=== PATIENT | female | born 1995 | race Hispanic/Latino ===

== ENCOUNTER 2017-03-30 18:59 | Observation (INO) | payer BC ==
[2017-03-30] MEDS ORDERED: Sodium Chloride 0.9% 1,000 ML IV STA (19:31)
--- NOTE | 2017-03-30 19:35 | ED PDOC ---
Arrival/HPI - General Chief Complaint: Abdominal Pain Time Seen by Provider: 03/30/17 19:22 Historian: Patient - History of Present Illness Narrative History of Present Illness (Text): 03/30/17 19:33 A 22 year old female, whose past medical history includes asthma, presents to the emergency department complaining of stomach discomfort with some nausea beginning early this afternoon. Patient denies any vomiting or diarrhea. States she had eaten out [place] food night prior. Patient denies any fever, chills, chest pain, shortness of breath or any other complaints at this time. Time/Duration: 4-6 hours Symptom Onset: Sudden Symptom Course: Unchanged Activities at Onset: Rest Associated Symptoms (Text): nausea Past Medical History - Provider Review Nursing Documentation Reviewed: Yes - Travel History Have you recently traveled outside [place] w/in the past 3 mons?: No - Infectious Disease Hx of Infectious Diseases: None - Tetanus Immunization Tetanus Immunization: Up to Date - Pulmonary Hx Asthma: Yes - Musculoskeletal/Rheumatological Hx Falls: No - Psychiatric Hx Depression: No Hx Emotional Abuse: No Hx Physical Abuse: No Hx Substance Use: No - Past Surgical History Past Surgical History: No Previous - Surgical History Hx Section: Yes (2016) Hx Tonsillectomy: Yes Other/Comment: Adenoidectomy - Anesthesia Hx Anesthesia: Yes Hx Anesthesia Reactions: No Hx Malignant Hyperthermia: No - Suicidal Assessment Feels Threatened In Home Enviroment: No Family/Social History - Physician Review Nursing Documentation Reviewed: Yes Family/Social History: No Known Family HX Smoking Status: Never Smoked Hx Alcohol Use: No Hx Substance Use: No Allergies/Home Meds Allergies/Adverse Reactions: Allergies amoxicillin [From Augmentin] Adverse Reaction (Verified 03/30/17 19:15) RASH cefdinir [From Omnicef] Adverse Reaction (Verified 03/30/17 19:15) RASH clavulanic acid [From Augmentin] Adverse Reaction (Verified 03/30/17 19:15) RASH clindamycin Adverse Reaction (Verified 03/30/17 19:15) RASH Sulfa (Sulfonamide Antibiotics) Adverse Reaction (Verified 03/30/17 19:15) RASH sulfamethoxazole [From Bactrim] Adverse Reaction (Verified 03/30/17 19:15) RASH trimethoprim [From Bactrim] Adverse Reaction (Verified 03/30/17 19:15) RASH pcn Adverse Reaction (Uncoded 03/30/17 19:15) ANGIOEDEMA Home Medications: Home Meds Medication Instructions Recorded Confirmed Albuterol HFA [Ventolin HFA 90 1 puff IH Q4 PRN 03/30/17 03/30/17 mcg/actuation (8 g)] Review of Systems - Physician Review All systems were reviewed & negative as marked: Yes - Review of Systems Constitutional: Normal Eyes: Normal ENT: Normal Respiratory: Normal Cardiovascular: Normal Gastrointestinal: Abdominal Pain, Nausea Genitourinary Female: Normal Musculoskeletal: Normal Skin: Normal Neurological: Normal Endocrine: Normal Hemo/Lymphatic: Normal Psychiatric: Normal Physical Exam Vital Signs Reviewed: Yes Vital Signs Temp Pulse Resp BP Pulse Ox 03/30/17 23:31 98.3 F 84 18 135/87 97 03/30/17 19:09 98.3 F 97 H 20 126/82 99 Temperature: Afebrile Blood Pressure: Normal Pulse: Regular Respiratory Rate: Normal Appearance: Positive for: Well-Appearing, Non-Toxic, Comfortable Pain Distress: None Mental Status: Positive for: Alert and Oriented X 3 - Systems Exam Head: Present: Atraumatic, Normocephalic Pupils: Present: PERRL Extroacular Muscles: Present: EOMI Conjunctiva: Present: Normal Ears: Present: NORMAL TM Mouth: Present: Moist Mucous Membranes Pharnyx: Present: Normal Neck: Present: Normal Range of Motion Respiratory/Chest: Present: Clear to Auscultation, Good Air Exchange. No: Respiratory Distress, Accessory Muscle Use Cardiovascular: Present: Regular Rate and Rhythm, Normal S1, S2. No: Murmurs Abdomen: Present: Normal Bowel Sounds. No: Tenderness, Distention, Peritoneal Signs Back: Present: Normal Inspection Upper Extremity: Present: Normal Inspection. No: Cyanosis, Edema Lower Extremity: Present: Normal Inspection. No: Edema Neurological: Present: GCS=15, CN II-XII Intact, Speech Normal, Motor Func Grossly Intact, Normal Sensory Function Skin: Present: Warm, Dry, Normal Color. No: Rashes Psychiatric: Present: Alert, Oriented x 3, Normal Insight, Normal Concentration Medical Decision Making ED Course and Treatment: 03/30/17 19:59 Impression: A 22 year old female complaining of stomach discomfort with nausea. Plan: -- Urinalysis -- labs -- Pepcid, IV fluids, Zofran -- Reassess and disposition Prior Visits: Notes and results from previous visits were reviewed. Patient last reported to emergency department on 11/08/15 for evaluation of rash and pruritus. Patient was advised to take medication and follow up with doctor/final inspector paper. Patient was discharged. - Lab Interpretations I have reviewed the lab results: Yes - RAD Interpretation Narrative RAD Interpretations (Text): US Gallbladder and Pancreas shows: Liver: The liver is increased in echogenicity and size measuring 21 cm in longitudinal dimension. No intrahepatic bile duct dilation. Gallbladder: No acute findings. No gallstones. Common bile duct: No stones. No dilation, measuring 4.2 mm. Pancreas: Visualization of the pancreas is limited by overlying bowel gas. Right kidney: Unremarkable in echogenicity and size measuring 12.2 x 5.3 x 5.2 cm. No obstructing stones. No solid mass. No hydronephrosis. The visualized abdominal aorta is non-aneurysmal, the IVC is patent. IMPRESSION: Fatty infiltration of an enlarged liver, as detailed above. Limited evaluation of the pancreas, secondary to overlying bowel gas CT Abdomen and Pelvis shows: Lower thorax: The bilateral lung bases are clear. ABDOMEN: Liver: The liver is enlarged, and demonstrates fatty infiltration. Gallbladder and bile ducts: No acute finding. No calcified stones. No intra- extrahepatic biliary ductal dilation. Pancreas: Limited evaluation secondary to the lack of intravenous contrast. Spleen: No acute findings. Adrenals: No acute findings. Kidneys and ureters: No obstructing stones. No hydronephrosis. PELVIS: Bladder: No acute findings. Reproductive: A 34 mm focus of fluid attenuation is identified within the left ovary, with a small amount of free fluid in the posterior cul-de-sac. Appendix: Air-filled appendix is of normal-caliber (series 2, image 125; series 601, image 54). ABDOMEN and PELVIS: Stomach and bowel: Mural thickening is identified within multiple loops of small bowel within the left mid to upper abdomen, without surrounding fluid or inflammatory change to confirm an acute enteritis. Peritoneum: As above. Lymph nodes: Prominent lymph nodes are identified within the root of the mesentery. Vasculature: No aortic aneurysm. Bones: No acute fracture. IMPRESSION: No obstructive uropathy. Prominent lymph nodes within the root of the mesentery. Fatty infiltration of an enlarged liver. Left ovarian (likely) cyst with free fluid in the posterior cul-de-sac. Mural thickening within multiple loops of small bowel within the left mid to upper quadrant without surrounding inflammation or fluid to confirm an enteritis. Aircraft Maintenance Technician: Radiologist - Medication Orders Current Medication Orders: Sodium Chloride (Sodium Chloride 0.9%) 1,000 mls @ 100 mls/hr IV .Q10H STA Stop: 03/31/17 12:20 Ondansetron HCl (Zofran Inj) 4 mg IVP Q6H PRN PRN Reason: Nausea/Vomiting Stop: 03/31/17 11:00 Discontinued Medications Famotidine (Pepcid) 20 mg IVP STAT STA Stop: 03/30/17 19:32 Last Admin: 03/30/17 19:58 Dose: 20 mg Sodium Chloride (Sodium Chloride 0.9%) 1,000 mls @ 999 mls/hr IV .Q1H1M STA Stop: 03/30/17 20:31 Last Admin: 03/30/17 19:58 Dose: 999 mls/hr Ketorolac Tromethamine (Toradol) 30 mg IVP ONCE ONE Stop: 03/30/17 20:10 Last Admin: 03/30/17 20:31 Dose: 30 mg Morphine Sulfate (Morphine) 2 mg IVP STAT STA Stop: 03/30/17 21:57 Last Admin: 03/30/17 22:24 Dose: 2 mg Morphine Sulfate (Morphine) 2 mg IVP STAT STA Stop: 03/31/17 00:20 Last Admin: 03/31/17 00:31 Dose: 2 mg Ondansetron HCl (Zofran Inj) 4 mg IVP ONCE ONE Stop: 03/30/17 19:32 Last Admin: 03/30/17 19:58 Dose: 4 mg ED OBSERVATION Date of observation admission: 03/30/17 Time of observation admission: 19:35 - Observation admission statement Patient is being placed in observation because:: evaluation of abdominal pain - Goals of Observation Goals of observation are:: determine and treat symptoms - Progress Note Progress Note: 03/30/17 19:35 Pt presented with stomach discomfort with nausea. Will observe pending labs, resolution of symptoms. 03/30/17 21:30 Pt in no acute distress. Still complaining of pain. 03/30/17 23:30 Reviewed sono, US Gallbladder and Pancreas shows: Fatty infiltration of an enlarged liver, as detailed above. Limited evaluation of the pancreas, secondary to overlying bowel gas. 03/31/17 01:09 Pt sill complaining of stomach discomfort. Will order CT Abdomen and Pelvis w/o contrast. 03/31/17 01:48 CT Abdomen and Pelvis shows: No obstructive uropathy. Prominent lymph nodes within the root of the mesentery. Fatty infiltration of an enlarged liver. Left ovarian (likely) cyst with free fluid in the posterior cul-de-sac. Mural thickening within multiple loops of small bowel within the left mid to upper quadrant without surrounding inflammation or fluid to confirm an enteritis. 03/31/17 02:[address] Marco Morales, who is aware and agrees with plan. Accepts pt in to her service. Pt will go to [facility] observation of intractable abdominal pain. Requests Dr. Singer on consult. - Scribe Statement The provider has reviewed the documentation as recorded by the Scribe Tien Pelletier All medical record entries made by the Scribe were at my direction and personally dictated by me. I have reviewed the chart and agree that the record accurately reflects my personal performance of the history, physical exam, medical decision making, and the department course for this patient. I have also personally directed, reviewed, and agree with the discharge instructions and disposition. Disposition/Present on Arrival - Present on Arrival Any Indicators Present on Arrival: No History of DVT/PE: No History of Uncontrolled Diabetes: No Urinary Catheter: No History of Decub. Ulcer: No History Surgical Site Infection Following: None - Disposition Have Diagnosis and Disposition been Completed?: Yes Diagnosis: Intractable abdominal pain Disposition: HOSPITALIZED Disposition Time: 02:23 Patient Plan: Observation Patient Problems: Current Active Problems Problem Status Onset Intractable abdominal pain Acute Condition: STABLE
[2017-03-30 19:58] LABS: URINE BILIRUBIN NEGATIVE (NEGATIVE); URINE BLOOD NEGATIVE (NEGATIVE); URINE GLUCOSE (UA) NEGATIVE (NEGATIVE); URINE KETONE NEGATIVE (NEGATIVE); URINE LEUKOCYTE ESTERASE NEGATIVE Leu/uL (NEGATIVE); URINE PROTEIN NEGATIVE mg/dL (<30 mg/dL); URINE UROBILINOGEN 0.2 E.U./dL (<1 E.U./dL)
[2017-03-30 20:02] LABS: URINE APPEARANCE CLEAR (CLEAR); URINE COLOR YELLOW (YELLOW)
[2017-03-30 20:11] LABS: ALB/GLOB RATIO 1.2 (1.1-1.8); ALKALINE PHOSPHATASE 63 U/L (38-133); ALT/SGPT 55 U/L (7-56); AST/SGOT 26 U/L (15-39); BILIRUBIN,TOTAL 0.5 mg/dL (0.2-1.3); BLOOD UREA NITROGEN 12 mg/dL (7-21); CALCIUM 9.2 mg/dL (8.4-10.5); CARBON DIOXIDE 28 mmol/L (21-33); CHLORIDE 101 mmol/L (98-107); GFR AFRICAN-AMERICAN > 60; GLUCOSE,RANDOM 94 mg/dL (70-110); LIPASE 58 U/L (23-300); SODIUM 139 mmol/L (132-148)
[2017-03-30 20:15] LABS: HEMATOCRIT 39.5 % (36.0-48.0); MEAN CELL VOLUME 80.9 fL (80.0-105.0); MEAN CORPUSCULAR HEMOGLOBIN 27.3 pg (25.0-35.0); MEAN CORPUSCULAR HGB CONC 33.7 g/dl (31.0-37.0); MEAN PLATELET VOLUME 10.3 fl (7.0-11.0); RED CELL DISTRIBUTION WIDTH 13.8 % (11.5-14.5)
[2017-03-30] MEDS ORDERED: Morphine 2 mg/ml ISec IVP STA (21:56)
--- NOTE | 2017-03-30 23:40 | US ---
EXAM: US Abdomen Limited, Right Upper Quadrant CLINICAL HISTORY: 22 years old, female; Pain; Abdominal pain; Generalized TECHNIQUE: Real-time ultrasound of the right upper quadrant with image documentation. COMPARISON: No relevant prior studies available. FINDINGS: Liver: The liver is increased in echogenicity and size measuring 21 cm in longitudinal dimension. No intrahepatic bile duct dilation. Gallbladder: No acute findings. No gallstones. Common bile duct: No stones. No dilation, measuring 4.2 mm. Pancreas: Visualization of the pancreas is limited by overlying bowel gas. Right kidney: Unremarkable in echogenicity and size measuring 12.2 x 5.3 x 5.2 cm. No obstructing stones. No solid mass. No hydronephrosis. The visualized abdominal aorta is non-aneurysmal, the IVC is patent. IMPRESSION: Fatty infiltration of an enlarged liver, as detailed above. Limited evaluation of the pancreas, secondary to overlying bowel gas.
[2017-03-31] MEDS ORDERED: Morphine 2 mg/ml ISec IVP STA (00:19)
[2017-03-31] MEDS ORDERED: Sodium Chloride 0.9% 1,000 ML IV STA (02:21)
[2017-03-31 03:58] VITALS: RESP 18; BMI 39.1
[2017-03-31] MEDS ORDERED: HYDROmorphone 1 mg/ml ISec IVP STA (04:29)
--- NOTE | 2017-03-31 04:39 | CP.PCM.PN ---
Subjective - Date & Time of Evaluation Date of Evaluation: 03/31/17 Time of Evaluation: 04:34 - Subjective Subjective: Patient was seen at bedside in presence of nurse Lowry for abdominal pain. States that abdominal pain was intermittent before, now it's continuous, in periumbilical area mostly.Has some nausea. No vomiting, diarrhoea.Has no other complaints. States that she received morphine in the ER , after which she had some relief in pain for about half hour. This 22 year old white woman is admitted for intractable abdominal pain. She has history of asthma, obesity, adenoidectomy,tonsillectomy , . Objective - Vital Signs/Intake and Output Vital Signs (last 24 hours): Temp Pulse Resp BP Pulse Ox 99 F 102 H 18 122/71 100 03/31/17 03:48 03/31/17 03:48 03/31/17 03:48 03/31/17 03:48 03/31/17 02:46 - Medications Medications: Current Medications Sodium Chloride (Sodium Chloride 0.9%) 1,000 mls @ 100 mls/hr IV .Q10H STA Stop: 03/31/17 12:20 Last Admin: 03/31/17 02:40 Dose: 100 mls/hr Ondansetron HCl (Zofran Inj) 4 mg IVP Q6H PRN PRN Reason: Nausea/Vomiting Stop: 03/31/17 11:00 Last Admin: 03/31/17 04:24 Dose: 4 mg - Labs Labs: 03/30/17 19:50 03/30/17 19:50 - Constitutional Appears: Well, No Acute Distress - Head Exam Head Exam: ATRAUMATIC, NORMAL INSPECTION, NORMOCEPHALIC Additional comments: Obese. - Eye Exam Eye Exam: Normal appearance - ENT Exam ENT Exam: Normal External Ear Exam - Neck Exam Neck Exam: Normal Inspection - Respiratory Exam Respiratory Exam: NORMAL BREATHING PATTERN - Cardiovascular Exam Cardiovascular Exam: absent: JVD - GI/Abdominal Exam GI & Abdominal Exam: Tenderness (Mild periumbilical .). absent: Distended - Rectal Exam Rectal Exam: Deferred - Extremities Exam Extremities Exam: Normal Inspection - Back Exam Back Exam: NORMAL INSPECTION - Neurological Exam Neurological Exam: Alert, Oriented x3 - Psychiatric Exam Psychiatric exam: Normal Affect, Normal Mood - Skin Skin Exam: Normal Color Assessment and Plan - Assessment and Plan (Free Text) Assessment: A/P:Intractable abdominal pain. Asthma. Obesity. Dilaudid 1 mg IV x 1 . Continue present management.
[2017-03-31 07:44] VITALS: BP 102/57; PULSE 100; TEMP 99; O2SAT 98
--- NOTE | 2017-03-31 09:08 | CT ---
PROCEDURE: CT Abdomen and Pelvis without intravenous contrast HISTORY: pain COMPARISON: None. TECHNIQUE: Axial and reformatted coronal and sagittal CT images of the abdomen and pelvis were obtained without IV or oral contrast administration.. Contrast Dose: 0 Radiation dose: Total exam DLP = 1169.02 mGy-cm. This CT exam was performed using one or more of the following dose reduction techniques: Automated exposure control, adjustment of the mA and/or kV according to patient size, and/or use of iterative reconstruction technique. FINDINGS: LOWER THORAX: Unremarkable. LIVER: Hepatomegaly with findings suggestive of moderate hepatic steatosis are noted. GALLBLADDER AND BILE DUCTS: No evidence of colitis. PANCREAS: Unremarkable. No gross lesion or ductal dilatation. SPLEEN: Unremarkable. ADRENALS: Unremarkable. No mass. KIDNEYS AND URETERS: Unremarkable. No hydronephrosis. No solid mass. VASCULATURE: Unremarkable. No aortic aneurysm. BOWEL: Mural thickening noted in multiple small bowel loops. Correlate clinically for enteritis. Dense of bowel obstruction. APPENDIX: No evidence of appendicitis. PERITONEUM: Unremarkable. No free fluid. No free air. LYMPH NODES: Mildly enlarged mesenteric lymph nodes seen at the mid and upper abdomen of uncertain etiology. BLADDER: Unremarkable. REPRODUCTIVE: There is 3.1 centimeter cyst at the left adnexa. There is a small amount of fluid in the pelvis. The uterus is slightly prominent heterogeneous. BONES: No acute fracture. OTHER FINDINGS: None. IMPRESSION: No evidence of nephrolithiasis or hydronephrosis. Scattered mildly enlarged mesenteric lymph nodes suspicious for mesenteric adenitis. Mild diffuse small bowel wall thickening. Correlate clinically for enteritis. 3.1 centimeters cyst at the left adnexa. Small amount of fluid seen in the pelvis. If clinically warranted further assessment by ultrasound may be obtained. Preliminary report was submitted by virtual Radiology.
--- NOTE | 2017-03-31 10:40 | HP ---
HISTORY OF PRESENT ILLNESS: The patient is a 22-year-old woman with a past medical history of mild intermittent asthma who presented to the [facility] Emergency Department with a 1-day history of gradual onset epigastric abdominal discomfort associated with nausea and decreased p.o. intake. The patient states that she was in her usual state of health until the day prior to presentation to the Emergency Department when she had eaten [place] food for dinner. Several hours later and leading into the following day , the patient reported development of epigastric abdominal discomfort associated with bloating and dyspepsia. The patient reports increasing in intensity of the pain and inability to tolerate p.o. intake, which prompted her visit to the Emergency Department. The patient denied vomiting or diarrhea associated with her symptoms and, furthermore, denied fevers, chills, rigors or jaundice associated with her symptoms. Upon arrival to the Emergency Department , she was noted to be afebrile and hemodynamically stable, however, with persistent epigastric abdominal discomfort. The patient received morphine and Toradol with some improvement in her abdominal pain. The patient also underwent an ultrasound of the gallbladder and a CT of the abdomen and pelvis, both of which were unremarkable. However, given her ongoing discomfort, she was admitted to the [facility] for observation for intractable abdominal pain. This morning, the patient states she feels improved since admission, but continues to endorse some nausea and epigastric abdominal pain. PAST MEDICAL HISTORY: As per HPI. PAST SURGICAL HISTORY: None. MEDICATIONS: Ventolin HFA 2 puffs q. 4-6 hours p.r.n. dyspnea/wheeze. ALLERGIES: PENICILLIN, CEPHALOSPORINS, SULFA, AND CLINDAMYCIN. FAMILY HISTORY: Noncontributory. SOCIAL HISTORY: The patient reports social alcohol use. She denies tobacco use or illicit drug abuse. REVIEW OF SYSTEMS: A 14 point review of systems is negative except as per HPI. PHYSICAL EXAMINATION: VITAL SIGNS: Temperature 99, pulse 100, blood pressure 102/57, respiratory rate 18, oxygen saturation 98% on room air. GENERAL: No apparent distress. HEENT: PERRL. EOMI. No scleral icterus, no conjunctival pallor. NECK: No JVD, no bruits. LUNGS: Clear to auscultation. CARDIOVASCULAR: Regular rate and rhythm. Normal S1 and S2. ABDOMEN: Normoactive bowel sounds. Soft, tender to palpation to epigastrium with voluntary guarding. No rigidity, no tympany, no distention. EXTREMITIES: No edema. NEUROLOGIC: Awake, alert and oriented x 3. No focal motor deficits. LABORATORY DATA: WBC 10, hemoglobin 13, hematocrit 39, platelets 286. Chemistry reviewed and unremarkable. Urinalysis reviewed and unremarkable. Urine hCG negative. IMAGING STUDIES: 1. Gallbladder ultrasound demonstrates no acute pathology. 2. CT of the abdomen and pelvis demonstrates mural thickening with no surrounding inflammation or fluid and findings consistent with adenitis. ASSESSMENT: The patient is a 22-year-old woman with a past medical history of mild intermittent asthma who presented to [facility] Emergency Department with a 1-day history of epigastric abdominal discomfort associated with nausea and decreased p.o. intake. PLAN: 1. Abdominal pain, intractable, likely secondary to acute gastritis vs adenitis. The patient does report improvement in her symptoms since admission with IV fluid hydration, administration of morphine and Pepcid. Will start patient on Protonix 40 mg IV daily. Will continue with gentle IV fluid hydration. Will resume diet. Dr. Singer has been consulted in the Emergency Department for evaluation for further recommendations. 2. Mild intermittent asthma. Continue with supplemental oxygen and bronchodilators as needed. 3. Prophylaxis. Continue with Protonix 40 mg IV daily for GI prophylaxis. DVT prophylaxis not indicated as patient is ambulatory. CODE STATUS: Full code. Kolby Morales MD cc: [id number] TT: 03/31/2017 10:39:10 zana EDMONDS
--- NOTE | 2017-03-31 13:15 | CON ---
DATE: 03/31/2017 Seen and examined at the bedside this afternoon. REQUEST FOR CONSULTATION: For intractable abdominal pain. HISTORY OF PRESENT ILLNESS: This is a 22-year-old female with a past medical history of asthma, C-se ction and adenoidectomy. Came to the Emergency Room with complaints of abdominal pain, mainly epigas tric area. States that it started yesterday. Did complain of some nausea. No vomiting. The patien t does complain of acid reflux. Denies any history of NSAID use. No reports of any sick contacts or recent travel. She does state that she did have [place] food on Friday, but her also at the same thing. No fever or chills. Denies any diarrhea. In fact, she had bowel movement yesterday th at was formed, did not notice any melena or bright red blood. On admission, she had a CT scan of abd omen and pelvis, which is reporting some thickening in the small bowel loops and enlarged mesenteric lymph nodes. She also had a gallbladder ultrasound and it showed enlarged fatty liver, no gallstones and common bile duct was no dilatation or stones. This morning, she was able to tolerate some break fast and does feel slightly better, but still having abdominal discomfort. Some nausea. No reports of any vomiting. PAST MEDICAL HISTORY: As stated above is asthma, and adenoidectomy. PAST SURGICAL HISTORY: She had a tonsillectomy and adenoidectomy and . SOCIAL HISTORY: Denies smoking, ETOH, or substance abuse. FAMILY HISTORY: Heart disease, hypertension, glaucoma. MEDICATIONS: Reviewed as per MAR. ALLERGIES: PENICILLIN, CEPHALOSPORINS, SULFA, AND CLINDAMYCIN. REVIEW OF SYSTEMS: Systems reviewed with positive findings, see HPI. VITAL SIGNS: Temperature is 99.0, blood pressure 102/57, pulse is 100, respirations 18, 98% on room air. LABORATORIES: WBC is 10.0, H and H is 13.3 and 39.5, platelets is 286. Chem: Sodium 139, K 4.0, BU N 12, creatinine 0.6. LFTs are within normal limits. Lipase is 58. Urinalysis is negative. Urine hCG is negative. Gallbladder ultrasound: Fatty infiltration of an enlarged liver, limited evaluation of the pancreas secondary to overlying bowel gas. The gallbladder, no acute findings, no gallstones. Common bile du ct measures 4.[address] scan of abdomen and pelvis with no contrast reports mildly enlarged mesenteri c lymph nodes seen at the mid and upper abdomen of uncertain etiology. She has mural thickening note d in the small bowel loops, correlate clinically for enteritis, mildly enlarged lymph nodes suspiciou s for mesenteric adenitis, 3.1 cm cyst at the left adnexa, small amount of fluid seen in the pelvis. If clinically warranted, further assessment by ultrasound may be obtained. PHYSICAL EXAMINATION: HEENT: Sclera is anicteric. NECK: Supple. CARDIAC: S1, S2. LUNGS: Clear. ABDOMEN: With bowel sounds, soft, positive epigastric tenderness. No rebound or guarding. She does have some diffuse tenderness to mid abdomen. No organomegaly. EXTREMITIES: Positive pedal pulses, no edema. NEUROLOGIC: Awake, alert, and oriented. ASSESSMENT: This is a 22-year-old female with a history of asthma, section and adenoidectom y. Comes with complaint of sudden onset of epigastric discomfort with nausea. Differentials may lik abner consider gastritis, gastroenteritis. The patient also was noted to have enlarged lymph nodes rafia picious for mesenteric adenitis. PLAN: Continue her diet as tolerated. Continue PPI, on Protonix 40 IV, Zofran p.r.n. If patient co ntinues to have epigastric discomfort, consider endoscopy for further evaluation. Her abdominal ultr asound is negative. Thank you for this consult and for allowing us to participate in your patient's care. We will make f terither recommendations based upon patient's clinical course. The patient was seen and case discussed with Dr. Singer. Merari THORPE cc: [id number] TT: 03/31/2017 13:15:27 Confirmation # [id number] Dictation # [id number] en
--- NOTE | 2017-03-31 21:28 | DS ---
ADMITTING DIAGNOSIS: Acute gastritis. DISCHARGE DIAGNOSES: Acute gastritis, mesenteric adenitis. SECONDARY DIAGNOSIS: Mild intermittent asthma. CONSULTATIONS: Dr. Singer (gastroenterology). IMAGING STUDIES: 1. Gallbladder ultrasound which demonstrated no acute pathology. 2. CT of the abdomen and pelvis without contrast, which demonstrated scattered mildly enlarged mesen teric lymph nodes suspicious for mesenteric adenitis. HISTORY OF PRESENT ILLNESS: The patient is a 22-year-old woman with past medical history of mild int ermittent asthma who presents to [facility] Emergency Department with a 1-day history of gradual onset of epigastric abdominal discomfort associated with nausea and decreased p.o. intake. T he patient states that she was in her usual state of health until the day prior to presentation to [facility] Emergency Department when she had eaten [place] [employer] food for dinner. Several hours later and leading i nto the following day, the patient reported development of epigastric abdominal discomfort associated with bloating and dyspepsia. The patient reports increasing intensity in the pain and inability to tolerate p.o. intake, which prompted her visit to the Emergency Department. She denied vomiting or d iarrhea associated with her symptoms and furthermore denied fevers, chills, rigors or jaundice. Upon arrival to the Emergency Department, she was noted to be afebrile and hemodynamically stable; howeve r, with persistent epigastric abdominal discomfort. The patient received morphine and Toradol with m inimal improvement in her abdominal pain. She also underwent an ultrasound of the gallbladder and a CT of the abdomen and pelvis and was subsequently admitted to [facility] for continued IV fluid hydration and pain control. HOSPITAL COURSE: Upon admission to the [facility], the patient was maintained on normal sa line at 100 mL per hour. She was also maintained on Zofran and started on Protonix 40 mg IV daily. The patient reported moderate improvement in her symptoms since admission and after evaluation with Chito Singer of gastroenterology no further acute recommendations were made. The patient tolerated he r breakfast tray and by lunchtime she stated that she felt well and wanted to be discharged to home. CONDITION: Good, improved. DISPOSITION: To home. DISCHARGE MEDICATIONS: Zofran 4 mg p.o. q. 6 hours p.r.n. nausea, Protonix 40 mg p.o. daily. DISCHARGE INSTRUCTIONS: The patient was advised if she has any recurrence of her symptoms to present to her PMD or to the nearest Emergency Department immediately. FOLLOWUP: The patient to follow up with her PMD within 1 week of discharge. Kolby Morales MD cc: [id number] TT: 03/31/2017 21:26:47 zana
== END 2017-03-31 16:50 | disposition home or self-care (01) ==
LOC: ED 18:59 → EROBSV 19:35 → ERH 03-31 02:30 → 5RNO 03-31 03:38
PROVIDERS: ADMIT Student in an Organized Health Care Education/Training Program; ATTEND Student in an Organized Health Care Education/Training Program
DX: K29.00 Acute gastritis without bleeding (principal); I88.0 Nonspecific mesenteric lymphadenitis; J45.20 Mild intermittent asthma, uncomplicated; E66.9 Obesity, unspecified; Z68.39 Body mass index [BMI] 39.0-39.9, adult; K76.0 Fatty (change of) liver, not elsewhere classified; Z82.49 Family history of ischemic heart disease and other diseases of the circulatory system
CPT/HCPCS: 74176; 76705; 80053; 81003; 83690; 84703; 85027; 96361; 96374; 96375; 96376; 99285; C9113; G0378; J1170; J1885; J2270; J2405; J7040